=== PATIENT | female | born 1995 | race African-American/Black ===

== ENCOUNTER 2019-09-03 08:05 | Emergency (ER) | payer OTHER, SELFPAY ==
[2019-09-03 08:10] VITALS: BP 144/102; PULSE 119; RESP 18; TEMP 36.9; O2SAT 100
[2019-09-03 08:29] VITALS: BP 112/72; BP 113/68; PULSE 75; PULSE 94
[2019-09-03 08:30] VITALS: BP 110/73; PULSE 83
--- NOTE | 2019-09-03 08:36 | ED.FEMALEGU ---
HPI - Female Genitourinary General Chief complaint: Vaginal Bleeding Stated complaint: Vaginal Bleeding, Time Seen by Provider: 09/03/19 08:26 Source: patient Mode of arrival: ambulatory Limitations: no limitations History of Present Illness HPI Narrative: Patient is a 24-year-old female who presents to the emergency department with complaint of vaginal bleeding and positive test. Patient states she had two positive home test last week. Patient states she had onset of vaginal bleeding and pelvic cramping this morning. Patient does report noticing some spotting last night. Patient has OB appointment scheduled for October. MD elicited complaint: vaginal bleeding and suspected Possible : at home test positive Date of Last Menstrual Period: 08/06/19 Related Data : 3 Para: 3 Home Medications Medication Instructions Recorded Confirmed venlafaxine mg PO 09/03/19 Allergies Allergy/AdvReac Type Severity Reaction Status Date / Time No Known Allergies Allergy Unverified 09/03/19 08:17 Review of Systems Review of Systems: All systems reviewed & are unremarkable except as noted in HPI and below PMFSH Past Medical History Medical History (Updated 09/03/19 @ 11:18 by Lis Rockwell MD) Asthma Surgical History Surgical History (Updated 09/03/19 @ 08:38 by Lis Rockwell MD) History of lumpectomy of left breast History of tonsillectomy and adenoidectomy Social History Social History (Updated 09/03/19 @ 08:43 by Lis Rockwell MD) Smoking status: Current every day smoker Living arrangements: with family Gender identity (if verbalized by the patient): Female Exam Const: General: cooperative, no acute distress and alert Nutritional Appearance: obese Orientation/consciousness: patient oriented x3 Limitations: no limitations HENMT: Mouth: Yes lip normal and Yes moist mucous membranes Resp: Effort & Inspection: normal respiratory effort Auscultation: clear to auscultation bilaterally Cardio: Rate: regular rate Rhythm: regular rhythm GI: GI Palp: Yes Soft to palpation and Yes Tenderness to palpation present (GI) (Mild suprapubic) Auscultation: normal bowel sounds Skin: General skin exam: normal color Neuro: General: patient oriented x3 Cognition (Neuro): normal cognition Speech: normal speech Extrem: General: normal to inspection, full ROM and no clubbing, cyanosis or edema Psych: Mental Status: mental status grossly normal Affect: normal affect Attitude: cooperative Course Course Emergency Course: Patient with negative urine and blood test. Patient based on her last normal menstrual period is due for her current menstrual cycle. Cannot exclude the possibility patient could have had a positive test and had a super early miscarriage, however with a negative test here and time for her usual period, suspect this is simply her menses and patient was not . Vital Signs Vital signs: Vital Signs Temperature 98.4 F 09/03/19 08:10 Pulse Rate 119 H 09/03/19 08:10 Respiratory Rate 18 09/03/19 08:10 Blood Pressure 144/102 H 09/03/19 08:10 Pulse Oximetry 100 09/03/19 08:10 Temperature 98.4 F 09/03/19 08:10 Pulse Rate 83 09/03/19 08:30 Respiratory Rate 18 09/03/19 08:10 Blood Pressure 110/73 09/03/19 08:30 Pulse Oximetry 100 09/03/19 08:10 MDM - Female Genitourinary Lab Data Attestation: I reviewed the patient's lab results. Result diagrams: 09/03/19 08:38 Labs: Lab Results 09/03/19 09/03/19 09/03/19 Range/Units 08:30 08:31 08:38 WBC 6.0 (4.5-10.0) K/mm3 RBC 5.00 (4.2-5.4) M/mm3 Hgb 14.3 (12.0-15.0) g/dL Hct 44.2 (37.0-47.0) % MCV 88.4 (80-100) fl MCH 28.6 (26-34) pg MCHC 32.4 (32-36) g/dl RDW 14.6 H (11.5-14.5) % Plt Count 196 (150-375) k/mm3 MPV 12.7 H (7.4-10.4) fl Immature Gran % (Au
[2019-09-03 08:50] LABS: Basophils Percent Auto 0.7 % (0.2-1.2); Eosinophils Absolute Auto 0.2 K/mm3 (0-0.3); Eosinophils Percent Auto 2.8 % (0-4.4); Hematocrit 44.2 % (37.0-47.0); Hemoglobin 14.3 g/dL (12.0-15.0); Immature Granulocyte Absolute 0.02 K/mm3 (0.00-0.031); Immature Granulocyte Percent A 0.3 % (0-0.5); Lymphocytes Absolute Auto 2.35 K/mm3 (0.9-3.2); Lymphocytes Percent Auto 39.4 % (18.3-44.2); Mean Corpuscular HGB Conc 32.4 g/dl (32-36); Mean Corpuscular Hemoglobin 28.6 pg (26-34); Mean Corpuscular Volume 88.4 fl (80-100); Mean Platelet Volume 12.7 fl (7.4-10.4); Monocytes Absolute Auto 0.5 K/mm3 (0.1-0.6); Neutrophils Absolute Auto 2.9 K/mm3 (1.3-6.7); Neutrophils Percent Auto 47.8 % (45.5-73.1); Platelet Count Result 196 k/mm3 (150-375); Red Cell Distribution Width 14.6 % (11.5-14.5)
[2019-09-03 09:28] LABS: Beta HCG Quantitative < 2.39 mIU/ML
[2019-09-03 10:30] VITALS: BP 112/84; PULSE 85; RESP 18; O2SAT 98
--- NOTE | 2019-09-03 11:00 | PC.NURSE ---
Pt called out asking for pain meds or asked if she could take her own tylenol. states that she is going to DC here and that she can take her own tylenol. This RN told pt she could take her own tylenol because she would be discharge. I told pt i would be back with her papers and to take out her IV
--- NOTE | 2019-09-03 11:33 | PC.NURSE ---
Pt left ED with IV line and before d/c instructions could be given. Called number on file at 1130 to see if she could come back to get it removed. Talked to family member who answered. She stated that Ms austin was with her but she would give her a call to let her know to come back in. She was made aware that the PD might be called if pt didnt return.
--- NOTE | 2019-09-03 12:09 | PC.NURSE ---
attempted to call pt again at 1200. Pts family stated that she told them she didnt have an IV in. I advised her that since we had put one in she would have to come in show us her arm to show that its gone or we can take it out. Advised again that the PD would have to be called if she didnt come back in. Family stated they would let her know. 1210 pt called dept letting us know she was on her way.
--- NOTE | 2019-09-03 12:56 | PC.NURSE ---
Blake george/ isaias hyde taped over L AC, states I removed it myself before I walked out and put it in the biohazard box. I know I shouldnt of, but I was pissed off and wanted to leave. Rhonda VAZQUEZ aware.
== END 2019-09-03 13:08 | disposition home or self-care (01) ==
PROVIDERS: Emergency Provider Emergency Medicine
DX: N93.9 Abnormal uterine and vaginal bleeding, unspecified (principal); J45.909 Unspecified asthma, uncomplicated; F17.200 Nicotine dependence, unspecified, uncomplicated
CPT/HCPCS: 36415; 84702; 85025; 85461; 99284

== ENCOUNTER 2020-10-31 11:04 | Outpatient (CLI) | payer OTHER, SELFPAY ==
--- NOTE | ~2020-10-31 | US_ITS ---
EXAMINATION: US OB <= 14 weeks fetus EXAM DATE: 10/31/2020 12:07 INDICATION: Spotting 1st trimester. 1st trimester. TECHNIQUE: Pelvic obstetrical transabdominal sonogram was performed by a technologist. There are mu ltiple grayscale and Doppler images available for interpretation. There are no earlier studies of th is gestation for comparison. FINDINGS: Uterus measures 8.7 x 7.0 x 6.0 cm. There is intrauterine gestation sac. pole with heart rate confirmed at 180 beats per minute. The 1.9 cm crown-rump length corresponds to estimated gestational age by ultrasound of 8 weeks 3 days, estimated date of confinement 06/09/2021. Yolk sac i s identified. There is no sonographic evidence of subchorionic hemorrhage. Left ovary morphologic ally normal with Doppler flow confirmed. IMPRESSION: Early live intrauterine gestation, age by ultrasound 8 weeks 3 days. Reviewed, dictated and finalized at location A. IMPRESSION: Early live intrauterine gestation, age by ultrasound 8 weeks 3 days .
[2020-10-31 11:47] LABS: Hematocrit 44.8 % (37.0-47.0); Hemoglobin 14.9 g/dL (12.0-15.0); Mean Corpuscular HGB Conc 33.3 g/dl (32-36); Mean Corpuscular Hemoglobin 30.2 pg (26-34); Mean Corpuscular Volume 90.9 fl (80-100); Mean Platelet Volume 11.9 fl (7.4-10.4); Platelet Count Result 225 k/mm3 (150-375); Red Blood Count 4.93 M/mm3 (4.2-5.4); Red Cell Distribution Width 13.6 % (11.5-14.5); White Blood Count 4.5 K/mm3 (4.5-10.0)
[2020-10-31 12:42] LABS: HIV 1/2 Ab P24 Ag Result Negative (Negative)
[2020-10-31 12:58] LABS: Rapid Plasma Reagin Non-Reactive (NonReactive)
[2020-10-31 13:12] LABS: Hepatitis B Surface Antigen Negative (Negative); Rubella IgG Antibody 32.3 IU/ML
[2020-11-05 14:23] LABS: Varicella IgM Antibody <=0.90 (<=0.90)
== END 2020-10-31 11:05 | disposition home or self-care (01) ==
LOC: ANHLAB 11:10
PROVIDERS: Visit Provider Obstetrics & Gynecology
DX: O26.851 Spotting complicating pregnancy, first trimester (principal); Z3A.08 8 weeks gestation of pregnancy
CPT/HCPCS: 36415; 76801; 84702; 85027; 86592; 86644; 86703; 86747; 86762; 86787; 86850; 86900; 86901; 87086; 87340; G0432

== ENCOUNTER 2021-02-04 02:55 | Observation (INO) | payer OTHER, SELFPAY ==
--- NOTE | 2021-02-04 02:55 | OBADM ---
This patient, Xenia Galindo, admitted to the OB room OB Post 116 for observation. Patient/family oriented to hospital policies and general routines including ID bracelet, bed and alarms, visiting hours, pain management, procedures, bathroom and other care routines, personal items, smoking policy, room service/diet, and visiting hours. Patient/Family are encouraged to report perceived risks to care and to ask questions if they do not understand what they are told or what they should do.
[2021-02-04 03:08] VITALS: BP 99/61; PULSE 97
[2021-02-04 03:15] VITALS: BP 99/64; PULSE 91
[2021-02-04] MEDS: ACETAMINOPHEN 500 MG TABLET 1000 MG PO (03:28)
[2021-02-04 03:30] VITALS: BP 96/63; PULSE 88
[2021-02-04 03:32] VITALS: BMI 29.4
[2021-02-04 03:45] VITALS: BP 98/58; PULSE 88
[2021-02-04 03:47] LABS: Add Urine Microscopic? YES; Appearance Urine Cloudy (Clear); Bacteria Urine Trace /hpf; Bilirubin Urine Negative (Negative); Blood Urine Negative (Negative); Color Urine Yellow (Yellow); Glucose Urine UA Negative (Negative); Ketones Urine Negative (Negative); Leukocyte Esterase Ur 3+ LEU/UL (NEGATIVE); Mucus Urine Moderate /lpf; Nitrate Urine Negative (Negative); Protein Urine 1+ mg/dL (Negative); RBC Urine 0-2 /hpf (0-2); Specific Grav Ur 1.023 (1.001-1.035); Squamous Epithelial Cell Urine Many /hpf (Few)
--- NOTE | 2021-02-09 12:26 | P.PNOB_ITS ---
OB - Triage/Final Diagnosis Visit Information Reason for evaluation: threatened labor Comments/Additional reasons for admission: I have assessed the risk for this patient, Miguelubnaherman Lucas Melchor, and determined that she would benefit from observation care. Evaluation Laboratory results: Laboratory Tests 02/04/21 03:19 Urine Color Yellow Urine Appearance Cloudy H Urine pH 6.0 Ur Specific [place] 1.023 Urine Protein 1+ H Urine Glucose (UA) Negative Urine Ketones Negative Ur Blood (Man) Negative Urine Nitrate Negative Urine Bilirubin Negative Urine Urobilinogen 2.0 H Ur Leukocyte Esterase 3+ H Urine RBC 0-2 Urine WBC 7-9 H Ur Squamous Epith Cells Many H Urine Bacteria Trace Urine Mucus Moderate H
== END 2021-02-04 05:15 | disposition home or self-care (01) ==
PROVIDERS: Admitting Provider Obstetrics & Gynecology; Visit Provider Obstetrics & Gynecology
DX: O47.03 False labor before 37 completed weeks of gestation, third trimester (principal); Z3A.22 22 weeks gestation of pregnancy
CPT/HCPCS: 81001; 87086; 87088; A9270; G0378; G0379

== ENCOUNTER 2021-05-11 15:30 | Observation (INO) | payer OTHER, SELFPAY ==
--- NOTE | 2021-05-11 20:13 | OBADM ---
This patient, Xenia Galindo, admitted to the OB room Labor/Delivery/Recovery 105 for observation. Patient/family oriented to hospital policies and general routines including ID bracelet, bed and alarms, visiting hours, pain management, procedures, bathroom and other care routines, personal items, smoking policy, room service/diet, and visiting hours. Patient/Family are encouraged to report perceived risks to care and to ask questions if they do not understand what they are told or what they should do.
--- NOTE | 2021-05-14 15:14 | PM.OBTRLD ---
OB - Triage/Final Diagnosis Visit Information Reason for evaluation: threatened labor Comments/Additional reasons for admission: I have assessed the risk for this patient, Xenia Galindo, and determined that she would benefit from observation care.
== END 2021-05-11 20:23 | disposition home or self-care (01) ==
PROVIDERS: Admitting Provider Obstetrics & Gynecology; PCP Family Medicine; Visit Provider Obstetrics & Gynecology
DX: O47.03 False labor before 37 completed weeks of gestation, third trimester (principal); Z3A.36 36 weeks gestation of pregnancy
CPT/HCPCS: G0378; G0379

== ENCOUNTER 2021-05-17 01:05 | Observation (INO) | payer OTHER, SELFPAY ==
[2021-05-17 01:28] VITALS: BP 114/62; PULSE 95
[2021-05-17 01:30] VITALS: BP 108/67; PULSE 97
[2021-05-17 01:45] VITALS: BP 97/72; PULSE 101
[2021-05-17 02:00] VITALS: BP 106/66; PULSE 88
[2021-05-17 02:17] VITALS: BMI 30.4
[2021-05-17 02:20] LABS: Basophils Percent Auto 0.3 % (0.2-1.2); Eosinophils Percent Auto 0.4 % (0-4.4); Hematocrit 30.5 % (37.0-47.0); Hemoglobin 9.9 g/dL (12.0-15.0); Immature Granulocyte Absolute 0.11 K/mm3 (0.00-0.031); Immature Granulocyte Percent A 1.5 % (0-0.5); Lymphocytes Absolute Auto 1.47 K/mm3 (0.9-3.2); Lymphocytes Percent Auto 19.5 % (18.3-44.2); Mean Corpuscular HGB Conc 32.5 g/dl (32-36); Mean Corpuscular Hemoglobin 27.4 pg (26-34); Mean Corpuscular Volume 84.5 fl (80-100); Mean Platelet Volume 11.1 fl (7.4-10.4); Monocytes Absolute Auto 0.7 K/mm3 (0.1-0.6); Monocytes Percent Auto 9.3 % (2.6-8.5); Neutrophils Absolute Auto 5.2 K/mm3 (1.3-6.7); Platelet Count Result 194 k/mm3 (150-375); Red Blood Count 3.61 M/mm3 (4.2-5.4); Red Cell Distribution Width 13.6 % (11.5-14.5); White Blood Count 7.6 K/mm3 (4.5-10.0)
[2021-05-17 03:13] LABS: HIV 1/2 Ab P24 Ag Result Negative (Negative)
--- NOTE | 2021-05-17 09:25 | P.PNOB_ITS ---
OB - Triage/Final Diagnosis Visit Information Comments/Additional reasons for admission: I have assessed the risk for this patient, Xenia Galindo, and determined that she would benefit from observation care. Evaluation Laboratory results: Laboratory Tests 05/17/21 05/17/21 05/17/21 01:59 01:59 01:59 WBC 7.6 RBC 3.61 L Hgb 9.9 L Hct 30.5 L MCV 84.5 MCH 27.4 MCHC 32.5 RDW 13.6 Plt Count 194 MPV 11.1 H Immature Gran % (Auto) 1.5 H Neut % (Auto) 69.0 Lymph % (Auto) 19.5 [place] % (Auto) 9.3 H Eos % (Auto) 0.4 Baso % (Auto) 0.3 Lymph # (Auto) 1.47 [place] # (Auto) 0.7 H Eos # (Auto) 0.0 Baso # (Auto) 0.0 Abs Immat Gran (auto) 0.11 H Absolute Neuts (auto) 5.2 Absolute Nucleated RBC 0.0 Nucleated RBC % 0.0 HIV 1&2 Ab/P24 Ag 4thGn Negative Blood Type B Positive Antibody Screen Negative Vital signs: Vital Signs - 24 hr 05/17/21 01:28 05/17/21 01:30 05/17/21 01:45 Pulse Rate 95 97 101 H Blood Pressure 114/62 108/67 97/72 L 05/17/21 02:00 Pulse Rate 88 Blood Pressure 106/66 Final Diagnosis (1) Vaginal discharge during in third trimester: Code(s): O26.893 - Other specified related conditions, third trimester; N89.8 - Other specified noninflammatory disorders of vagina Status: Acute
[2021-05-18 06:08] LABS: Rapid Plasma Reagin Non-Reactive (NonReactive)
== END 2021-05-17 03:35 | disposition home or self-care (01) ==
PROVIDERS: Admitting Provider Obstetrics & Gynecology; PCP Family Medicine; Visit Provider Obstetrics & Gynecology
DX: O26.893 Other specified pregnancy related conditions, third trimester (principal); Z3A.36 36 weeks gestation of pregnancy; N89.8 Other specified noninflammatory disorders of vagina
CPT/HCPCS: 36415; 84112; 85025; 86592; 86703; 86850; 86900; 86901; 87081; G0378; G0379; G0432

== ENCOUNTER 2021-05-19 12:26 | Inpatient (IN) | payer OTHER, SELFPAY ==
[2021-05-19] VITALS (109 sets, daily range): BP systolic 66–130; BP diastolic 34–92; PULSE 68–127; RESP 18–20; TEMP 36.4–36.6; O2SAT 86–100; BMI 30.6
[2021-05-19 13:23] LABS: Basophils Percent Auto 0.3 % (0.2-1.2); Eosinophils Percent Auto 0.3 % (0-4.4); Hematocrit 33.6 % (37.0-47.0); Immature Granulocyte Absolute 0.06 K/mm3 (0.00-0.031); Lymphocytes Percent Auto 17.8 % (18.3-44.2); Mean Corpuscular HGB Conc 32.7 g/dl (32-36); Mean Corpuscular Volume 82.4 fl (80-100); Mean Platelet Volume 11.1 fl (7.4-10.4); Monocytes Absolute Auto 0.5 K/mm3 (0.1-0.6); Monocytes Percent Auto 7.3 % (2.6-8.5); Neutrophils Absolute Auto 4.5 K/mm3 (1.3-6.7); Neutrophils Percent Auto 73.3 % (45.5-73.1); Platelet Count Result 225 k/mm3 (150-375); Red Blood Count 4.08 M/mm3 (4.2-5.4); Red Cell Distribution Width 13.8 % (11.5-14.5); White Blood Count 6.2 K/mm3 (4.5-10.0)
[2021-05-19] MEDS: LACTATED RINGERS 1,000 ML 125 ML IV CONT ×2 (13:24→14:10)
[2021-05-19 13:36] LABS: Amphetamine Screen Urine Negative (Negative); Barbiturate Screen Urine Negative (Negative); Benzodiazepines Screen Urine Positive (Negative); Cannabinoid Screen Urine Positive (Negative); Cocaine Screen Urine Negative (Negative); Methadone Screen Urine Negative (Negative); Opiate Screen Urine Negative (Negative); Phencyclidine Screen Urine Negative (Negative)
--- NOTE | 2021-05-19 13:42 | LDADM ---
This patient, Xenia Galindo, was admitted to Labor/Delivery/Recovery 108 on 05/19/21 at 12:26. Plans for labor, pain management and were discussed with patient. Patient/family oriented to hospital policies and general routines including ID bracelet, bed and alarms, visiting hours, pain management, procedures, bathroom and other care routines, personal items, smoking policy, room service/diet and guest tray routines, infant security routines, and visiting hours. Patient/Family are encouraged to report perceived risks to care and to ask questions if they do not understand what they are told or what they should do. See OBIX for further documentation.
[2021-05-19 14:13] LABS: HIV 1/2 Ab P24 Ag Result Negative (Negative)
[2021-05-19] MEDS: PHENYLEPHRINE 1,000 MCG/10 ML SYRINGE 1000 MCG (14:46)
--- NOTE | 2021-05-19 16:34 | PM.IMHP ---
H&P: HPI History of Present Illness Date/Time: 05/19/21 16:15 Xenia is a 26yo @ 37.1wks (SARA 06/08/21) who presented to her scheduled clinic appointment with complaints of contractions, vaginal discharge and pelvic pressure. She was found to be 6/50/-2 with bulging bag. She was sent for admission and got her epidural. She denies VB, LOF. She feels good movement. Her is complicated by: - H/o PTD x2 - Asthma - Limited care; only 3 visits (no glucola performed) - Anemia - Tobacco abuse Chief Complaint: contractions Review of Systems Review of Systems: All systems reviewed & are unremarkable except as noted in HPI and below (HPI) [facility] Social History Social History Smoking status: Current every day smoker Tobacco type: cigarettes Second hand tobacco smoke exposure: Yes Substance use: current Last use: this AM Spiritual care concerns: No Meds Home Medications and Allergies Home Medications Medication Instructions Recorded Confirmed Type PNV no.[id number] 1 tablet PO DAILY 05/19/21 05/19/21 History [ Gummies] albuterol sulfate 2 puff INHALATION PRN PRN 05/19/21 05/19/21 History alprazolam 1 mg tablet 1 mg PO DAILY 05/19/21 05/19/21 History escitalopram oxalate 20 mg tablet 20 mg PO DAILY 05/19/21 05/19/21 History Allergies Allergy/AdvReac Type Severity Reaction Status Date / Time No Known Allergies Allergy Unverified 05/19/21 10:56 Vital Signs Vital Signs - 24 hr 05/19/21 13:22 05/19/21 13:31 05/19/21 13:41 Temperature 97.7 F Pulse Rate 92 91 Respiratory Rate 20 Blood Pressure 105/78 114/82 Pulse Oximetry 05/19/21 13:59 05/19/21 14:00 05/19/21 14:01 Temperature Pulse Rate 93 119 H Respiratory Rate Blood Pressure 124/74 122/75 Pulse Oximetry 100 05/19/21 14:03 05/19/21 14:04 05/19/21 14:05 Temperature Pulse Rate 109 H 108 H Respiratory Rate Blood Pressure 126/69 109/65 Pulse Oximetry 100 05/19/21 14:08 05/19/21 14:09 05/19/21 14:11 Temperature Pulse Rate 100 95 Respiratory Rate Blood Pressure 115/70 107/56 L Pulse Oximetry 100 05/19/21 14:12 05/19/21 14:13 05/19/21 14:14 Temperature Pulse Rate 98 96 Respiratory Rate Blood Pressure 106/56 L 107/54 L Pulse Oximetry 99 05/19/21 14:15 05/19/21 14:16 05/19/21 14:19 Temperature Pulse Rate 102 H 103 H Respiratory Rate Blood Pressure 103/55 L 107/60 Pulse Oximetry 98 05/19/21 14:21 05/19/21 14:24 05/19/21 14:26 Temperature Pulse Rate 105 H 91 Respiratory Rate Blood Pressure 99/54 L 66/52 L Pulse Oximetry 100 05/19/21 14:27 05/19/21 14:29 05/19/21 14:31 Temperature Pulse Rate 80 83 Respiratory Rate Blood Pressure 97/52 L 110/70 Pulse Oximetry 98 05/19/21 14:34 05/19/21 14:36 05/19/21 14:39 Temperature Pulse Rate 88 Respiratory Rate Blood Pressure 113/65 Pulse Oximetry 100 99 05/19/21 14:41 05/19/21 14:44 05/19/21 14:46 Temperature Pulse Rate 88 80 Respiratory Rate Blood Pressure 104/61 87/54 L Pulse Oximetry 98 05/19/21 14:49 05/19/21 14:50 05/19/21 14:53 Temperature 97.9 F Pulse Rate 71 Respiratory Rate 18 Blood Pressure 97/64 L Pulse Oximetry 98 05/19/21 14:54 05/19/21 14:56 05/19/21 14:59 Temperature Pulse Rate 82 Respiratory Rate Blood Pressure 90/57 L Pulse Oximetry 98 98 05/19/21 15:01 05/19/21 15:04 05/19/21 15:07 Temperature Pulse Rate 87 84 Respiratory Rate Blood Pressure 96/61 L 80/58 L Pulse Oximetry 96 05/19/21 15:09 05/19/21 15:11 05/19/21 15:14 Temperature Pulse Rate 85 Respiratory Rate Blood Pressure 89/51 L Pulse Oximetry 100 97 05/19/21 15:16 05/19/21 15:19 05/19/21 15:21 Temperature Pulse Rate 79 79 Respiratory Rate Blood Pressure 101/58 L 94/
[2021-05-19 16:49] LABS: Rapid Plasma Reagin Non-Reactive (NonReactive)
--- NOTE | 2021-05-19 17:15 | WPDHPUPDATE1 ---
History and Physical Update Update Date/Time: 05/19/21 17:15 History and Physical has been reviewed, including an updated exam of the patient. There are NO changes in the patient's condition. Risks, benefits, and alternatives have been discussed and questions answered. Patient agrees to proceed with procedure.
--- NOTE | 2021-05-19 20:03 | PM.OBPRVD ---
OB - Delivery Note Procedure Delivery date: 05/19/21 events: No Care (limited (only 3 visits)) and Labor Augmentation Intrapartal events: Deceleration Delivery augmentation: rupture of membranes and pitocin Delivery monitor: external FHT and external uterine Route of delivery: Laceration Description: None Specimen: Yes (placenta) Quantitative Blood Loss (ml): 250 Anesthesia type: Epidural Disposition: floor [place] Baby Date of : 05/19/21 Time of : 19:51 Weeks of gestation at delivery: 37 (.1) Infant gender: Female Weight (pounds): 6 Weight (ounces): 5 presentation: vertex position: Right Occiput Anterior Placenta delivery description: Expressed cord vessel description: 3 Vessels, Nuchal Cord, Loose and Delayed Cord Clamping score one minute: 8 score five minutes: 9 Narrative: Kirschinique progressed to complete dilation with strong desire to push. She pushed for two contractions and delivered the head over intact perineum. Nuchal cord was palpated but loose and delivered through. She easily delivered the infant's shoulders and body without complication. The infant was immediately placed skin to skin and had spontaneous cry. Delayed cord clamping was performed. The umbilical cord was then clamped and cut. A segment of the cord was collected for cord gases. The remaining cord blood was collected for typing. With Pitocin running and gentle downward traction on the cord, the placenta delivered without complications. Bimanual massage was performed good uterine tone with minimal bleeding was noted. Patient was examined and no lacerations were present. Sponge, lap, instrument, needle counts were correct at the end the procedure. Mom and baby were left finding in the birthing suite in stable condition. [facility] Delivery Billing Delivery Delivery: Delivery Charge
[2021-05-19] MEDS: OXYTOCIN 30 UNITS/NS 500 ML 30 UNITS/500 ML BAG 125 UNITS IV CONT (20:37)
[2021-05-19] MEDS: BENZOCAINE 20% AER SPR (*SP) 56 GM CAN 1 SPRAY TOPICAL (22:31)
[2021-05-19] MEDS: WITCH HAZEL 40 PADS 1 PAD TOPICAL (22:31)
[2021-05-19] MEDS: IBUPROFEN 600 MG TABLET PO (22:31)
[2021-05-20] MEDS: ALPRAZolam (*CRX) 0.5 MG TABLET 1 MG PO ×2 (02:16→20:02)
[2021-05-20 04:00] VITALS: BP 93/52; PULSE 76; RESP 18; TEMP 36.6; O2SAT 100
[2021-05-20 05:43] LABS: Hematocrit 31.9 % (37.0-47.0); Hemoglobin 9.8 g/dL (12.0-15.0)
--- NOTE | 2021-05-20 07:27 | PM.OBPNVD ---
OB - PN: Subj Subjective Date/time seen: 05/20/21 07:27 Narrative: PPD#1 Xenia reports doing well today. 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 Her pain is controlled. She is voiding, passing gas, and ambulating without issues. She has not ordered breakfast yet. She is bottle feeding. OB - PN: Obj Data Labs CBC & Chem 7: 05/20/21 03:49 Labs: Laboratory Results - last 24 hr 05/19/21 05/19/21 05/19/21 12:55 12:55 12:55 WBC 6.2 RBC 4.08 L Hgb 11.0 L Hct 33.6 L MCV 82.4 MCH 27.0 MCHC 32.7 RDW 13.8 Plt Count 225 MPV 11.1 H Immature Gran % (Auto) 1.0 H Neut % (Auto) 73.3 H Lymph % (Auto) 17.8 L [place] % (Auto) 7.3 Eos % (Auto) 0.3 Baso % (Auto) 0.3 Lymph # (Auto) 1.10 [place] # (Auto) 0.5 Eos # (Auto) 0.0 Baso # (Auto) 0.0 Abs Immat Gran (auto) 0.06 H Absolute Neuts (auto) 4.5 Absolute Nucleated RBC 0.0 Nucleated RBC % 0.0 Urine Opiates Screen Negative Urine Methadone Screen Negative Ur Barbiturates Screen Negative Ur Phencyclidine Scrn Negative Ur Amphetamine Screen Negative U Benzodiazepines Scrn Positive A Urine Cocaine Screen Negative U Cannabinoids Screen Positive A RPR Non-reactive HIV 1&2 Ab/P24 Ag 4thGn Blood Type 05/19/21 05/19/21 05/20/21 12:55 12:58 03:49 WBC RBC Hgb 9.8 L Hct 31.9 L MCV MCH MCHC RDW Plt Count MPV Immature Gran % (Auto) Neut % (Auto) Lymph % (Auto) [place] % (Auto) Eos % (Auto) Baso % (Auto) Lymph # (Auto) [place] # (Auto) Eos # (Auto) Baso # (Auto) Abs Immat Gran (auto) Absolute Neuts (auto) Absolute Nucleated RBC Nucleated RBC % Urine Opiates Screen Urine Methadone Screen Ur Barbiturates Screen Ur Phencyclidine Scrn Ur Amphetamine Screen U Benzodiazepines Scrn Urine Cocaine Screen U Cannabinoids Screen RPR HIV 1&2 Ab/P24 Ag 4thGn Negative Blood Type B Positive OB - PN A/P Assessment and Plan (1) Normal vaginal delivery: Code(s): O80 - Encounter for full-term uncomplicated delivery Status: Acute Plan day: 1 Plan: routine care Time Spent With Patient Time: Total time spent is greater than 50% in coordination of care (as documented) at patient's floor/unit and/or counseling patient: Review of Systems Constitutional: Constitutional: Denies chills, Denies fever(s) and Denies headache(s) Eyes: Eyes: Denies change in vision ENT: Denies dizziness and Denies headache(s) Cardiovascular: Cardiovascular: Denies chest pain, Denies palpitations and Denies dyspnea Respiratory: Respiratory: Denies cough and Denies dyspnea Gastrointestinal: Gastrointestinal: Denies nausea and Denies vomiting Neurologic: Denies dizziness and Denies headache(s) Endocrine: Endocrine: Denies palpitations Exam Const: General: cooperative, comfortable and no acute distress Orientation/consciousness: patient oriented x3 Resp: Effort & Inspection: normal respiratory effort Auscultation: clear to auscultation bilaterally Cardio: Rate: regular rate GI: Inspection: non-distended GI Palp: No abdominal tenderness and Yes Soft to palpation Auscultation: normal bowel sounds : Other: fundus firm Skin: General skin exam: normal color Neuro: General: patient oriented x3 Extrem: General: normal to inspection Psych: Appearance: grossly normal Affect: normal affect Attitude: cooperative
[2021-05-20 09:05] VITALS: BP 125/81; PULSE 86; RESP 18; TEMP 36.3; O2SAT 100
[2021-05-20] MEDS: IBUPROFEN 600 MG TABLET PO ×2 (09:10→16:49)
[2021-05-20] MEDS: ESCITALOPRAM OXALATE 10 MG TABLET 20 MG PO (09:10)
[2021-05-20] MEDS: DOCUSATE SODIUM 100 MG CAPSULE PO (09:10)
[2021-05-20] MEDS: POLYSACCHARIDE IRON COMPLEX 150 MG CAPSULE PO (09:10)
--- NOTE | 2021-05-20 10:28 | PCCCNOTE ---
Care Coordination met with pt. and FOB this morning to discuss discharge planning. Pt.'s current D/C plan is to return home with baby and her other three young children. Pt. states that she has everything needed to safely bring baby home and has local friend and family support to help with child care coordinator. Pt. will bottle feed baby at time of D/C, she is not current with [facility]. Pt. has been provided resources. Pt. tested positive for Benzos and Marijuana at time of admission. Baby was tested and urine drug screen was positive for Marijuana. Pt. states that she has a prescription for Xanax that gave her a positive Benzo drug screen. Pt. states she used Marijuana to assist with her symptoms as well as her anxiety. Pt. states she has a closed DCFS case. CC created online report with the above information. Online intake ID [id number]. Will follow.
[2021-05-20 12:25] VITALS: BP 86/49; PULSE 82; RESP 16; TEMP 36.5; O2SAT 99
[2021-05-20 19:50] VITALS: BP 102/73; PULSE 82; RESP 16; TEMP 36.8; O2SAT 99
[2021-05-20] MEDS: ACETAMINOPHEN 325 MG TABLET 650 MG PO (20:03)
[2021-05-21 08:00] VITALS: BP 116/75; PULSE 73; RESP 18; TEMP 36.6; O2SAT 100
[2021-05-21] MEDS: POLYSACCHARIDE IRON COMPLEX 150 MG CAPSULE PO (08:02)
[2021-05-21] MEDS: ESCITALOPRAM OXALATE 10 MG TABLET 20 MG PO (08:02)
[2021-05-21] MEDS: SIMETHICONE 80 MG TAB.CHEW PO (08:03)
[2021-05-21] MEDS: IBUPROFEN 600 MG TABLET PO ×2 (08:03→14:13)
[2021-05-21] MEDS: DOCUSATE SODIUM 100 MG CAPSULE PO (08:03)
--- NOTE | 2021-05-21 09:59 | P.PNOB_ITS ---
OB - PN: Subj Subjective Date/time seen: 05/21/21 09:59 Narrative: PPD#2 Xenia reports doing well today. 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 Her pain is controlled. She is tolerating regular diet, voiding, passing gas, and ambulating without issues. She is bottle feeding. She would like to go home today. OB - PN: Obj Data Labs CBC & Chem 7: 05/20/21 03:49 OB - PN A/P Assessment and Plan (1) Normal vaginal delivery: Code(s): O80 - Encounter for full-term uncomplicated delivery Status: Acute Plan day: 2 Plan: routine care and discharge home Comments: - Pelvic rest; take meds as prescribed - ER return precautions: fever, n/v/abd pain, bleeding, HTN Time Spent With Patient Time: Total time spent is greater than 50% in coordination of care (as documented) at patient's floor/unit and/or counseling patient: Review of Systems Constitutional: Constitutional: Denies chills, Denies fever(s) and Denies headache(s) Eyes: Eyes: Denies change in vision ENT: Denies dizziness and Denies headache(s) Cardiovascular: Cardiovascular: Denies chest pain, Denies palpitations and Denies dyspnea Respiratory: Respiratory: Denies cough and Denies dyspnea Gastrointestinal: Gastrointestinal: Denies nausea and Denies vomiting Neurologic: Denies dizziness and Denies headache(s) Endocrine: Endocrine: Denies palpitations Exam Const: General: cooperative, comfortable and no acute distress Orientation/consciousness: patient oriented x3 Resp: Effort & Inspection: normal respiratory effort Auscultation: clear to auscultation bilaterally Cardio: Rate: regular rate GI: Inspection: non-distended GI Palp: No abdominal tenderness and Yes Soft to palpation Auscultation: normal bowel sounds : Other: fundus firm Skin: General skin exam: normal color Neuro: General: patient oriented x3 Extrem: General: normal to inspection Psych: Appearance: grossly normal Affect: normal affect Attitude: cooperative
[2021-05-21] MEDS: ACETAMINOPHEN 325 MG TABLET 650 MG PO (14:14)
--- NOTE | 2021-05-22 08:51 | PM.OBDSVD ---
DS: Admitting Diagnosis Discharge Date 05/21/21 Admitting Diagnosis active labor DS: Discharge Diagnosis Discharge Diagnosis (1) Normal vaginal delivery: Code(s): O80 - Encounter for full-term uncomplicated delivery Status: Acute OB - DS: Summary OB Procedures : Ultrasound OB Procedures Intrapartum: Spontaneous Vag Delivery OB Procedures: : None Peripartum Data Delivery Method: Natural Vaginal Laceration Description: None complications: none 1: Gender: Female Disposition of : home Status at Discharge Functional status at discharge: independent ambulation Overall status at discharge: patient is back to baseline Time Spent with Patient Time attestation: Total time spent providing and/or coordinating discharge services: Time spent: Less than 30 minutes Exam Const: General: cooperative, healthy appearing, comfortable and no acute distress Orientation/consciousness: patient oriented x3 Resp: Effort & Inspection: normal respiratory effort Auscultation: clear to auscultation bilaterally Cardio: Rate: regular rate GI: Inspection: non-distended GI Palp: No abdominal tenderness and Yes Soft to palpation Auscultation: normal bowel sounds : Other: fundus firm Skin: General skin exam: normal color Neuro: General: patient oriented x3 Extrem: General: normal to inspection Psych: Appearance: grossly normal Affect: normal affect Attitude: cooperative DS: Data Data Completed and Pending Pending studies at discharge: Pending at discharge 05/19/21 20:00 Surgical [PTH] Routine Discharge Plan Discharge Attending physician on discharge: Araceli Ashby Discharging Clinician: Araceli Ashby Anticipated Discharge Date/Time: 05/21/21 13:00 Patient Disposition: Home, Self-Care Activity: may shower, may drive after 2 weeks and pelvic rest Diet: regular Discharge Instructions: Education: Mom and Baby Guide Given to: Mother Follow-Up: Call your delivering provider's office for an appointment to be seen in: 4 Weeks Mom and baby should come to the [facility] for the follow-up appointment. Appointment Date/Time: May 23, 2021 at 10:00 am What to expect at your follow-up visit: Physical Assessment Call [phone] if you are unable to keep your appointment time. BREAST CARE: * Wear a snug supportive bra. * For engorgement discomfort: Bottle Feeding: * May apply ice packs PERINEAL CARE: * Until bleeding stops, use your molly bottle after urinating * Change your pad frequently throughout the day * You may take sitz baths several times a day (fill your bathtub with warm water and soak for 20 minutes.) Do NOT bathe in the water * No tub baths until seen by your physician - You may shower ACTIVITY: * Rest as much as possible. * Do not exercise or lift anything heavier than your baby (such as laundry or other children.) * Avoid stairs or driving as much as possible. * Do not put anything into the vagina. No douching, tampons, or sexual activity until seen by physician. NOTIFY PHYSICIAN IF YOU HAVE ANY QUESTIONS OR IF ANY OF THE FOLLOWING SYMPTOMS OCCUR: * If your perineum becomes red, swollen, or more painful than what you have experienced in the hospital. * If your vaginal bleeding becomes foul smelling. * If your vaginal bleeding becomes more heavy than a period or if your bleeding changes from pink to bright red. However, you may pass an occasional walnut-sized clot once or twice for the first week . * If you experience a sharp, shooting pain in you calves. * If you discover a hard, reddened area on your breast or if you experience flu-like symptoms. DIET: * Eat regular, well-balanced meals. * Drink plenty of fluids daily. Patient Instructions: Antibiotic Form Stand Alone Forms: General Discharge Information Follow-up/Referrals: Araceli Ashby MD [Physician]
[2021-05-23 09:56] VITALS: BP 116/76; PULSE 85; RESP 16; TEMP 37.2; O2SAT 100
== END 2021-05-21 15:40 | disposition home or self-care (01) | DRG 560 ==
LOC: ANHLDR 13:32 → ANHOB2 05-20 09:54 → ANHLDR 05-22 10:37 → ANHOB2 05-22 10:37
PROVIDERS: Admitting Provider Obstetrics & Gynecology; PCP Family Medicine; Visit Provider Obstetrics & Gynecology
DX: O76 Abnormality in fetal heart rate and rhythm complicating labor and delivery (principal); O99.52 Diseases of the respiratory system complicating childbirth; J45.909 Unspecified asthma, uncomplicated; O99.334 Smoking (tobacco) complicating childbirth; F17.210 Nicotine dependence, cigarettes, uncomplicated; O69.81X0 Labor and delivery complicated by cord around neck, without compression, not applicable or unspecified; O77.0 Labor and delivery complicated by meconium in amniotic fluid; Z3A.37 37 weeks gestation of pregnancy; Z37.0 Single live birth
CPT/HCPCS: 36415; 80307; 85014; 85018; 85025; 86592; 86703; 86900; 86901; 88307; A9270; G0432; J2370; J2590; J7120

== ENCOUNTER 2022-05-07 16:24 | Emergency (ER) | payer OTHER, SELFPAY ==
[2022-05-07 16:36] VITALS: BP 122/82; PULSE 103; RESP 20; TEMP 36.3; O2SAT 100
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
[2022-05-07] MEDS: KETOROLAC (*BKC) 60 MG/2 ML VIAL IM (17:19)
== END 2022-05-07 17:43 | disposition home or self-care (01) ==
PROVIDERS: Emergency Provider Nurse Practitioner
DX: S13.4XXA Sprain of ligaments of cervical spine, initial encounter (principal); V89.2XXA Person injured in unspecified motor-vehicle accident, traffic, initial encounter; J45.909 Unspecified asthma, uncomplicated; F17.210 Nicotine dependence, cigarettes, uncomplicated
CPT/HCPCS: 96372; 99213; G0463; J1885

== ENCOUNTER 2023-06-30 15:23 | Observation (INO) | payer OTHER, SELFPAY ==
--- NOTE | 2023-07-03 08:54 | PM.OBTRLD ---
OB - Triage/Final Diagnosis Visit Information Reason for evaluation: threatened labor Comments/Additional reasons for admission: I have assessed the risk for this patient, Xenia Roche, and determined that she would benefit from observation care.
== END 2023-06-30 16:50 | disposition home or self-care (01) ==
PROVIDERS: Admitting Provider Obstetrics & Gynecology; Visit Provider Obstetrics & Gynecology
DX: O47.1 False labor at or after 37 completed weeks of gestation (principal); Z3A.37 37 weeks gestation of pregnancy
CPT/HCPCS: G0379

== ENCOUNTER 2023-07-12 20:18 | Inpatient (IN) | payer OTHER, SELFPAY ==
[2023-07-12 20:30] VITALS: TEMP 36.6
[2023-07-12 22:01] VITALS: BP 109/60; PULSE 94
[2023-07-12 23:04] VITALS: BMI 36.6
--- NOTE | 2023-07-12 23:04 | LDADM ---
This patient, Xenia Roche, was admitted to Labor/Delivery/Recovery 104 on 07/12/23 at 20:18. Plans for labor, pain management and were discussed with patient. Patient/family oriented to hospital policies and general routines including ID bracelet, bed and alarms, visiting hours, pain management, procedures, bathroom and other care routines, personal items, smoking policy, room service/diet and guest tray routines, security routines, and visiting hours. Patient/Family are encouraged to report perceived risks to care and to ask questions if they do not understand what they are told or what they should do. See OBIX for further documentation.
[2023-07-12] MEDS: LACTATED RINGERS 1,000 ML 125 ML IV CONT (23:39)
[2023-07-13] VITALS (178 sets, daily range): BP systolic 73–142; BP diastolic 39–128; PULSE 64–158; RESP 16–18; TEMP 36.4–37.2; O2SAT 87–100
[2023-07-13 00:25] LABS: Basophils Percent Auto 0.2 % (0.2-1.2); Eosinophils Percent Auto 0.5 % (0-4.4); Hematocrit 35.5 % (37.0-47.0); Hemoglobin 10.9 g/dL (12.0-15.0); Immature Granulocyte Absolute 0.06 K/mm3 (0.00-0.031); Lymphocytes Absolute Auto 1.23 K/mm3 (0.9-3.2); Lymphocytes Percent Auto 19.7 % (18.3-44.2); Mean Corpuscular HGB Conc 30.7 g/dl (32-36); Mean Corpuscular Hemoglobin 24.8 pg (26-34); Mean Corpuscular Volume 80.7 fl (80-100); Mean Platelet Volume 12.1 fl (7.4-10.4); Monocytes Absolute Auto 0.5 K/mm3 (0.1-0.6); Monocytes Percent Auto 7.5 % (2.6-8.5); Neutrophils Absolute Auto 4.4 K/mm3 (1.3-6.7); Neutrophils Percent Auto 71.1 % (45.5-73.1); Platelet Count Result 191 k/mm3 (150-375); Red Cell Distribution Width 15.7 % (11.5-14.5); White Blood Count 6.2 K/mm3 (4.5-10.0)
--- NOTE | 2023-07-13 00:57 | WPDANESEPPF ---
Anes - Initial Pre Proc Eval Procedure: Labor epidural Date/Time: 07/13/23 00:35 Surgeon: Paco Vital MD Pre Op Diagnosis: Contractions Patient Data Age: 28 Gender: F Height: 1.57 m Weight: 91 kg Last Vital Signs Pulse 100 07/13/23 00:56 BP 108/76 07/13/23 00:56 Pulse Ox 100 07/13/23 00:52 O2 Del Method Room Air 07/12/23 23:04 Allergies Allergy/AdvReac Type Severity Reaction Status Date / Time No Known Allergies Allergy Verified 07/06/23 14:40 Home Medications Medication Instructions Recorded Confirmed Type albuterol sulfate 90 mcg/actuation 1 inh inhalation Q4H 10/05/22 07/06/23 History aerosol inhaler vits no.126-ferrous fum tablet PO 01/31/23 07/06/23 History 28 mg iron-folic acid 800 mcg tablet (Classic ) quetiapine 50 mg tablet 50 mg PO QHS #90 tabs 03/14/23 07/06/23 Rx vit 67-iron ps 29 mg 1 cap PO DAILY #90 caps 04/13/23 07/06/23 Rx iron-folate no.1 1 mg-dha 200 mg capsule ergocalciferol (vitamin D2) 1,250 1,250 mcg PO WEEKLY #10 caps 05/31/23 07/06/23 Rx mcg (50,000 unit) capsule Laboratory Tests 07/12/23 23:53 WBC 6.2 K/mm3 (4.5-10.0) RBC 4.40 M/mm3 (4.2-5.4) Hgb 10.9 L g/dL (12.0-15.0) Hct 35.5 L % (37.0-47.0) MCV 80.7 fl (80-100) MCH 24.8 L pg (26-34) MCHC 30.7 L g/dl (32-36) RDW 15.7 H % (11.5-14.5) Plt Count 191 k/mm3 (150-375) MPV 12.1 H fl (7.4-10.4) Immature Gran % (Auto) 1.0 H % (0-0.5) Neut % (Auto) 71.1 % (45.5-73.1) Lymph % (Auto) 19.7 % (18.3-44.2) Mccormick % (Auto) 7.5 % (2.6-8.5) Eos % (Auto) 0.5 % (0-4.4) Baso % (Auto) 0.2 % (0.2-1.2) Lymph # (Auto) 1.23 K/mm3 (0.9-3.2) Mccormick # (Auto) 0.5 K/mm3 (0.1-0.6) Eos # (Auto) 0.0 K/mm3 (0-0.3) Baso # (Auto) 0.0 K/mm3 (0.0-0.1) Abs Immat Gran (auto) 0.06 H K/mm3 (0.00-0.031) Absolute Neuts (auto) 4.4 K/mm3 (1.3-6.7) Absolute Nucleated RBC 0.000 K/mm3 (0.0-0.012) Nucleated RBC % 0.0 % (0.0-0.2) RPR Pending Blood Type B Positive Antibody Screen Pending Patient hx anesthesia problems: none Family hx anesthesia problems: none Results Review: All pre-operative results and documents have been reviewed as part of the pre-operative evaluation. [facility] Past Medical History Medical History Anxiety Asthma Bipolar depression PTSD (post-traumatic stress disorder) Surgical History Surgical History History of lumpectomy of left breast History of tonsillectomy and adenoidectomy Normal vaginal delivery (~05/2021) Family History Family History Grandparent Breast cancer Mother Breast cancer Social History Social History Smoking packs per day: 0.5 Smoking cigarettes per day: 10.0 Years smoked: 5 Smoking pack-years: 2.50 Smoking status: Current every day smoker Tobacco type: cigarettes Second hand tobacco smoke exposure: Yes Alcohol intake: former Alcohol use details: occasionally Substance use: current Substance use type: marijuana Last use: 07/12/23 Do You Feel Safe in your Home?: Yes Lack of Transportation: No Lack of Food: Never True Current Housing: Decline to Answer Concerned About Future Housing: YES Difficulty Paying Gas/Electric Bills: No Difficulty Paying for Meds: No Currently Unemployed: YES Education: High School Diploma/GED Difficulty w/ Childcare or Family Care: No Living arrangements: with family Additional living arrangements comments: / Children-4 Occupation/Education: occupation 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
--- NOTE | 2023-07-13 00:58 | WPDANESEPN ---
Anes - Epidural Procedure Note Date/Time: 07/13/23 00:58 Consent: I have discussed with the patient/family/POA, the placement of an epidural catheter and the use of epidural narcotic/local anesthetic for labor analgesia and/or postoperative pain management, including associated potential risks, benefits, complications and side effects. I have discussed alternative methods of labor analgesia and/or postoperative pain management. The patient/family/POA, understand(s) and wish(es) to proceed with epidural narcotic/local anesthetic for labor analgesia and/or postoperative pain management. Time-Out: A pre-procedural Time-Out was completed immediately before starting the procedure and confirmed: Patient Identification, Site, Procedure, Patient Position and the Availability of Requisite Equipment. Epidural Insertion Note Patient position: sitting Skin prep: chlorhexidine and sterile drape Needle: 18g Tuohy-Schliff Catheter: 20g Unstyleted Technique: Loss of resistance. Level of insertion: L4/5 Catheter skin edgardo (cm): 12 Length in epidural space (cm): 7 Skin anesthesia: lidocaine 1% Test dose: 1.5% Lidocaine with 1:[id number] Epi, negative for subarachnoid Inj and negative for intravascular Inj Time of test dose: 00:46 Observations: tolerated well Complications: none
[2023-07-13] MEDS: PHENYLEPHRINE 1,000 MCG/10 ML SYRINGE 100 MCG IV PUSH ×4 (01:12→02:23)
[2023-07-13] MEDS: LACTATED RINGERS 1,000 ML 125 ML IV CONT (02:04)
[2023-07-13] MEDS: ePHEDrine sulfate INJ 50 MG/ML AMPUL IV PUSH ×3 (02:38→03:08)
[2023-07-13] MEDS: OXYTOCIN 30 UNITS/NS 500 ML 30 UNITS/500 ML BAG IV CONT (03:20)
--- NOTE | 2023-07-13 07:13 | WPDOBADMIT ---
Obstetrics - Admit Note Admission Note: record reviewed. No pertinent additions to the history and/or any subsequent changes in the physical findings that are not consistent with the expected course of the were found. Additions to the history and/or subsequent changes in the physical findings follow. 28yo @ 39.1wks; her is complicated by: -Bipolar mood disorder- sertraline and seroquel -tobacco use -anxiety -asthma Admitted overnight and made change from 2cm to 5cm, now s/p epidural and comfortable FHT's: category 1 TOCO: ctxs q 2-3min on pitocin 14mU AROM, clear 0710 GBS neg anticipate soon
--- NOTE | 2023-07-13 09:39 | P.PCNOB_ITS ---
OB - Vaginal Delivery Note Procedure Delivery date: 07/13/23 Induction method: None Delivery augmentation: Rupture of Membranes Delivery monitor: External FHT and External Uterine Route of delivery: Episiotomy description: None Laceration Description: None Specimen: No Quantitative Blood Loss (ml): 300 Anesthesia type: Epidural Disposition: Floor Complications: No immediate complications Narrative: patient prepped and draped usual manner for this procedure. Maternal expulsive efforts readily delivered vertex over intact perineum. Further pushing delivered the rest the baby difficulty, cord was clamped cut, baby based on maternal abdomen. Placenta delivered spontaneously. Uterus was well contracted with minimal bleeding. Cervix vagina vulva were inspected without lacerations or tears. At this point the procedure was considered terminated. [place] Baby Weeks of gestation at delivery: 39 Infant gender: Male presentation: vertex position: Right Occiput Anterior Placenta delivery description: Spontaneous Cord Vessel Description: 3 Vessels AMG Delivery Billing Delivery Delivery: Delivery Charge
--- NOTE | 2023-07-13 09:39 | WPDHPUPDATE1 ---
History and Physical Update Update Date/Time: 07/13/23 09:39 History and Physical has been reviewed, including an updated exam of the patient. There are NO changes in the patient's condition. Risks, benefits, and alternatives have been discussed and questions answered. Patient agrees to proceed with procedure.
[2023-07-13] MEDS: OXYTOCIN 30 UNITS/NS 500 ML 30 UNITS/500 ML BAG 125 UNITS IV CONT (09:50)
[2023-07-13] MEDS: WITCH HAZEL 40 PADS 1 PAD TOPICAL (11:20)
[2023-07-13] MEDS: IBUPROFEN 600 MG TABLET PO (11:20)
[2023-07-13] MEDS: BENZOCAINE 20% AER SPR (*SP) 56 GM CAN 1 SPRAY TOPICAL (11:20)
[2023-07-13 14:27] LABS: Rapid Plasma Reagin Non-Reactive (NonReactive)
--- NOTE | 2023-07-13 14:45 | PC.NURSE ---
PT introductions made and plan of care discussed per post , pain management, daily care activities and bottle feeding. PT sole recipient of such instructions and no barriers to learning identified at this time. PT received such instructions per one to one discussion,mom baby care guide and demonstrations this shift. PT verbalized understanding of such care.
[2023-07-13] MEDS: ACETAMINOPHEN 325 MG TABLET 650 MG PO ×2 (16:02→22:00)
[2023-07-13] MEDS: DOCUSATE SODIUM 100 MG CAPSULE PO (16:02)
[2023-07-13] MEDS: QUEtiapine FUMARATE 25 MG TABLET 50 MG PO (22:00)
[2023-07-14 04:30] VITALS: BP 95/57; PULSE 82; RESP 16; TEMP 37.2; O2SAT 100
[2023-07-14] MEDS: ACETAMINOPHEN 325 MG TABLET 650 MG PO ×2 (04:30→10:17)
[2023-07-14] MEDS: IBUPROFEN 600 MG TABLET PO ×2 (04:30→10:17)
[2023-07-14 04:55] LABS: Hematocrit 32.5 % (37.0-47.0); Hemoglobin 9.9 g/dL (12.0-15.0)
--- NOTE | 2023-07-14 07:59 | WPDANLDPN2 ---
Anes-Prog Note L&D Date/Time: 07/14/23 07:59 Comfortable throughout: labor and delivery Neuraxial method: epidural Epidural/Spinal procedure site: clean & non-tender Neuro status: Neuro function grossly intact. Cardiovascular status: normal Respiratory status: normal Airway patency: baseline Mental status: baseline Post-Op hydration status: normal Vital Signs: Last Vital Signs Temp 37.2 C 07/14/23 04:30 Pulse 82 07/14/23 04:30 Resp 16 07/14/23 04:30 BP 95/57 L 07/14/23 04:30 Pulse Ox 100 07/14/23 04:30 O2 Del Method Room Air 07/13/23 12:50 Pain score (VAS): 2/10 I/O: Intake & Output 07/13/23 07/13/23 07/14/23 15:59 23:59 07:59 Intake Total 1500 Output Total 365 Balance 1135 Post-procedural complaints: none Patient feedback: Patient satisfied with anesthetic care.
[2023-07-14 08:35] VITALS: BP 109/76; PULSE 83; RESP 16; TEMP 37.1; O2SAT 100
[2023-07-14] MEDS: POLYSACCHARIDE IRON COMPLEX 150 MG CAPSULE PO (10:16)
[2023-07-14] MEDS: DOCUSATE SODIUM 100 MG CAPSULE PO (10:17)
[2023-07-14] MEDS: VENLAFAXINE HCL XR 75 MG CAP.ER.24H 225 MG PO (10:17)
--- NOTE | 2023-07-14 10:59 | PM.OBDSVD ---
DS: Admitting Diagnosis Discharge Date 07/15/2023 Admitting Diagnosis DS: Discharge Diagnosis Discharge Diagnosis (1) , delivered: Code(s): O80 - Encounter for full-term uncomplicated delivery Status: Acute OB - DS: Summary OB Procedures : None OB Procedures Intrapartum: Spontaneous Vag Delivery OB Procedures: : None Peripartum Data Laceration Description: None Episiotomy description: None Time Spent with Patient Time attestation: Total time spent providing and/or coordinating discharge services: DS: Data Data Completed and Pending Labs on day of discharge: Labs from last 24 hours 07/14/23 07/12/23 04:21 23:53 Hgb 9.9 L Hct 32.5 L RPR Non-reactive Discharge Plan Discharge Discharging Clinician: Paco Vital Patient Disposition: Home, Self-Care Activity: as tolerated Diet: as tolerated Patient Instructions: Antibiotic Form Stand Alone Forms: General Discharge Information Follow-up/Referrals: Paco Vital MD [Physician] - 3 Weeks Discharge Medications: New ibuprofen 600 mg Tablet 600 mg PO Q6H PRN (Reason: Cramping) Qty: 30 0RF venlafaxine [Effexor XR] 75 mg Capsule,Extended Release 24hr 225 mg PO DAILY@0800 Qty: 90 0RF Continued PNV 67-iron ps-folate no.1-dha 29 mg iron- 1 mg-200 mg capsule 1 cap PO DAILY Qty: 90 2RF albuterol sulfate 90 mcg/actuation HFA aerosol inhaler 1 inh inhalation Q4H quetiapine 50 mg tablet 50 mg PO QHS Qty: 90 2RF ergocalciferol (vitamin D2) 1,250 mcg (50,000 unit) capsule 1,250 mcg PO WEEKLY Qty: 10 0RF Date of admission: 07/12/23 20:18 Primary Care Provider: PHYSICIAN,CONSUMER SAFETY INSPECTOR Admitting Provider: Paco Vital Attending physician on admission: Paco Vital Condition: Stable
--- NOTE | 2023-07-14 15:33 | PCCCNOTE ---
Addendum entered by Yasmine López, MAURILIO 07/14/23 16:02: Recvd an email from [facility] that states: Your information has been reviewed and assessed by a Academic Assistant. The information you provided met the criteria for a Child Welfare Referral to offer services/provide support to the involved family. TAYLOR gardner. Original Note: Recvd CC consult due to scoring high on OB Substance Abuse Screening. Pt. self reports using THC during due to anxiety and appetite. No urine drug screen available during admission, for pt.; Nursing reports no plan for drug screen for baby. Pt. reports she, her four other children, and LAURA Doe(at bedside), will be living in [place], [place]. Pt. reports having all necessary supplies for new baby and states has support from FOB's mom Germaine, and pt's Aunt Ariana. Pt. reports already established with [employer] [facility] [employer]. CC consult was present during pt's last childbirth in 2021 and pt. was + for Benzo and THC at that time. Pt. reports that was due to being prescribed Xanax for her Bipolar Disorder, and pt. states now on Effexor med. Pt. reports nothing resulted from that [facility] report, and she was discharged with baby during that admission. Pt. reports having an open case with [facility] previously, and reports it was closed in 2019. Pt. reports the case pertained to cocaine use and that her children were never removed from her care, and she was required to attend a [employer] Substance Abuse Class. Pt. asks to be discharged today; TAYLOR gardner. No active concerns for pt. at this time. All info reported to [facility] via online portal - #[id number]. Awaiting [facility] decision. resources provided to pt.
[2023-07-16 09:09] VITALS: BP 118/74; PULSE 98; RESP 18; TEMP 37.2; O2SAT 100
== END 2023-07-14 17:28 | disposition home or self-care (01) | DRG 560 ==
LOC: ANHLDR 22:42 → ANHOB2 07-13 12:52
PROVIDERS: Admitting Provider Obstetrics & Gynecology; Visit Provider Obstetrics & Gynecology
DX: O62.3 Precipitate labor (principal); Z37.0 Single live birth; Z3A.39 39 weeks gestation of pregnancy; O99.344 Other mental disorders complicating childbirth; F31.9 Bipolar disorder, unspecified; F41.9 Anxiety disorder, unspecified; O99.52 Diseases of the respiratory system complicating childbirth; J45.909 Unspecified asthma, uncomplicated; O99.334 Smoking (tobacco) complicating childbirth
CPT/HCPCS: 36415; 85014; 85018; 85025; 86592; 86850; 86900; 86901; A9270; J2371; J2590; J2795; J7120

== ENCOUNTER 2024-01-25 12:43 | Outpatient (CLI) | payer OTHER, SELFPAY ==
--- NOTE | ~2024-01-25 | US_ITS ---
EXAMINATION:US venous doppler LE RT INDICATION:Right lower extremity pain and edema TECHNIQUE: Multiple grayscale, color flow and Doppler images of the right lower extremity deep venous systems were obtained and reviewed. COMPARISON:No prior studies for comparison. FINDINGS: The common femoral, superficial femoral and popliteal veins demonstrate normal respiratory variation, augmentation and compressibility. Color flow is also seen within the posterior tibial, pe roneal, greater saphenous and profunda veins. There is small amount of fluid fluid in the soft tissue s lateral to the right knee. IMPRESSION: 1: No lower extremity deep venous thrombosis. Reviewed, dictated and finalized at location B.
== END 2024-01-25 12:44 | disposition home or self-care (01) ==
DX: M79.661 Pain in right lower leg (principal); R60.0 Localized edema
CPT/HCPCS: 93971